=== PATIENT | male | born 1970 | race African-American/Black ===

== ENCOUNTER 2018-05-01 18:22 | Observation (INO) ==
--- NOTE | 2018-05-01 18:47 | Emergency Department Note ---
Disposition Clinical Impression: Atrial fibrillation with RVR Disposition: Admitted As Inpatient Condition: Fair Time of Disposition: 20:28 Arrhythmia/Palpitations HPI - General Chief Complaint: ED Arrhythmia/Palpitations Stated Complaint: A-Fib Time Seen by Provider: 05/01/18 18:29 Source: patient Mode of arrival: ambulatory Limitations: no limitations Nursing Notes Reviewed: Yes Vital Signs Reviewed: Yes - History of Present Illness HPI Narrative: 47-year-old male with a history of hypertension, A. fib presents for evaluation of dyspnea. Patient was sent from the cardiology office regarding his A. fib. Patient states he saw Dr. Galeana for a follow-up. States he has been having worsening dyspnea with exertion. Patient denies any chest pain. No fevers but has had a nonproductive cough. Patient denies any abdominal pain. No nausea or vomiting. Patient states he is on Xarelto and has been taking his heart rate medication per his director of residential services. - Related Data Home Medications Medication Instructions Recorded Confirmed Aspirin [Lo-Dose Aspirin EC] 81 mg PO DAILY 05/01/18 05/01/18 Lisinopril [Zestril] 40 mg PO DAILY 05/01/18 05/01/18 [place]-3/Dha/Epa/Fish Oil [Fish Oil 1 cap PO DAILY 05/01/18 05/01/18 1,000 mg Softgel] Rivaroxaban [Xarelto] 20 mg PO DAILY 05/01/18 05/01/18 Simvastatin [Zocor] 40 mg PO HS 05/01/18 05/01/18 Sotalol [Betapace] 80 mg PO Q12HR 05/01/18 05/01/18 metFORMIN [Glucophage] 500 mg PO BID 05/01/18 05/01/18 Allergies Allergy/AdvReac Type Severity Reaction Status Date / Time No Known Allergies Allergy Verified 05/01/18 18:26 All systems ED: reviewed and negative except as stated. Constitutional: Denies: fever Cardiovascular: Denies: chest pain Respiratory: Reports: cough, dyspnea Gastrointestinal: Denies: abdominal pain, nausea, vomiting Past Medical History - Past Medical History Source: patient Physical Exam - General Limitations: no limitations General appearance: alert, in no apparent distress, obese - Head Head exam: atraumatic, normocephalic, normal inspection - Eye Eye exam: Present: normal appearance, PERRL, EOMI - ENT ENT exam: normal exam, mucous membranes moist - Neck Neck exam: Present: normal inspection - Chest Chest inspection: Present: normal inspection, symmetric chest wall rise - Respiratory Respiratory exam: Present: normal lung sounds bilaterally. Absent: respiratory distress - Cardiovascular Cardiovascular exam: Present: tachycardia, irregular rhythm. Absent: systolic murmur - Abdominal Exam Abdominal exam: Present: soft, Non-Tender - Extremities Exam Extremities exam: Present: normal inspection. Absent: pedal edema - Back Exam Back exam: Present: normal inspection. Absent: CVA tenderness (R), CVA tenderness (L) - Neurological Exam Neurological exam: Present: alert, oriented X3, CN II-XII intact - Skin Skin exam: Present: warm, dry, intact, normal color Course Vital Signs Temperature 97.5 F L 05/01/18 18:25 Pulse Rate 132 05/01/18 18:25 Respiratory Rate 20 05/01/18 18:25 Blood Pressure 153/104 05/01/18 18:25 O2 Sat by Pulse Oximetry 96 05/01/18 18:25 Temperature 97.5 F L 05/01/18 19:04 Pulse Rate 107 05/01/18 20:05 Respiratory Rate 27 05/01/18 20:05 Blood Pressure 142/88 05/01/18 20:05 O2 Sat by Pulse Oximetry 99 05/01/18 20:05 Oxygen Delivery Oxygen Delivery Room Air Arrhythmia/Palpitations - [facility] Narrative Medical decision making narrative: Patient presented for concerns of dyspnea. Likely secondary the patient's A. fib RVR. Patient is on sotalol at baseline. Sent by cardiology for rate control with anticipated admission for cardioversion. Patient is also on Xarelto. Patient's labs clinically unremarkable. Chest x-ray also unremarkable. Patient was given pushed dose of labetalol to help control his rate. Patient's responded to that therapy. Patient will be admitted to the hospital service for rate control and cardioversion. - Lab Data Lab results reviewed: Yes I reviewed the patient's lab results. Result diagrams: 05/01/18 18:40 05/01/18 18:40 Lab Results 05/01/18 05/01/18 05/01/18 Range/Units 18:40 18:40 18:40 WBC 10.7 (4.3-11.1) K/mcL RBC 5.50 (4.19-5.50) M/mcL Hgb 14.9 (12.9-16.9) g/dL Hct 46.2 (37.5-50.1) % MCV 84.0 (83.0-100.0) fL MCH 27.1 L (28.0-33.3) pg MCHC 32.3 (31.6-35.5) g/dL RDW 14.5 (11.5-14.5) % Plt Count 281 (140-400) K/mcL MPV 9.6 (9.4-12.4) fL Immature Gran % 0.3 (0-4) % Seg Neutrophils % 66.6 % Lymphocytes % 21.8 % Monocytes % 7.9 % Eosinophils % 2.6 % Basophils % 0.8 % Neutrophils # 7.1 (1.6-8.9) K/mcL Lymphocytes # 2.3 (0.6-4.6) K/mcL Monocytes # 0.9 (0.0-1.3) K/mcL Eosinophils # 0.3 (0.0-0.6) K/mcL Basophils # 0.1 (0.0-0.2) K/mcL PT 22.0 H (9.4-12.1) Seconds INR 2.0 APTT 41.2 H (26.0-36.0) Seconds Sodium 135 L (136-145) mEq/L Potassium 4.1 (3.5-5.1) mEq/L Chloride 101 (98-107) mEq/L Carbon Dioxide 25 (23-29) mEq/L BUN 12 (6-20) mg/dL Creatinine 1.02 (0.70-1.30) mg/dL Est GFR ( Amer) > 60 (> 60) Est GFR (Non-Af Amer) > 60 (> 60) BUN/Creatinine Ratio 12 (6-26) Glucose 157 H (70-105) mg/dL Calculated Osmolality 283 (280-300) Calcium 9.8 (8.6-10.3) mg/dL Magnesium 2.0 (1.6-2.6) mg/dL Troponin I < 0.03 (< 0.04) ng/mL - Radiology Data Radiology results reviewed: Yes I reviewed the patient's radiology results. Chest X-Ray 05/01/18 18:32 IMPRESSION: No acute abnormality D/ / Jhony Herrera / Jhony Herrera Interpreting Provider: Jhony Herrera - EKG Data EKG attestation: Yes I reviewed and interpreted this EKG. Rate: tachycardia Rhythm: A.Fib [place]/QRS: normal Q waves: v1 QTc: other (499) Interpretation: no acute changes, nonspecific ST-T wave changes Yobany - Yobany Situation: Demographics Background: Presenting Complaint Assessment: Vital Signs, Course and respsone to treatment, Patient/Family Expectation Recommendation: Barrier(s) to disposition, Recommendation based on pending studies, treatments, or consults Yobany Report Given to: Dr. Julio César Haywood Repor Time: 20:09
[2018-05-01 19:02] LABS: Basophils # 0.1 K/mcL (0.0-0.2); Basophils % 0.8 %; Eosinophils # 0.3 K/mcL (0.0-0.6); Eosinophils % 2.6 %; Hematocrit 46.2 % (37.5-50.1); Hemoglobin 14.9 g/dL (12.9-16.9); Immature Granulocytes % 0.3 % (0-4); Lymphocytes # 2.3 K/mcL (0.6-4.6); Lymphocytes % 21.8 %; Mean Corpuscular HGB Conc 32.3 g/dL (31.6-35.5); Mean Corpuscular Hemoglobin 27.1 pg (28.0-33.3); Mean Platelet Volume 9.6 fL (9.4-12.4); Monocytes # 0.9 K/mcL (0.0-1.3); Monocytes % 7.9 %; Neutrophils # 7.1 K/mcL (1.6-8.9); Platelet Count 281 K/mcL (140-400); Red Cell Distribution Width 14.5 % (11.5-14.5); Segmented Neutrophils % 66.6 %
[2018-05-01] MEDS ORDERED: *HR* Metoprolol 5 MG/5 ML VIAL IVP ONE (19:12)
[2018-05-01] MEDS: *HR* Metoprolol 5 MG/5 ML VIAL IVP PRN ×3 (19:18→19:48)
[2018-05-01 19:22] LABS: BUN/Creatinine Ratio 12 (6-26); Blood Urea Nitrogen 12 mg/dL (6-20); Calcium 9.8 mg/dL (8.6-10.3); Carbon Dioxide 25 mEq/L (23-29); Chloride 101 mEq/L (98-107); Glucose 157 mg/dL (70-105); Osmolality,Calculated 283 (280-300); Potassium 4.1 mEq/L (3.5-5.1); Sodium 135 mEq/L (136-145); eGFR For Non-African Americans > 60 (> 60)
[2018-05-01 19:26] LABS: Activated Partial Thrombo Time 41.2 Seconds (26.0-36.0)
[2018-05-01 19:29] LABS: Troponin I < 0.03 ng/mL (< 0.04)
[2018-05-01] MEDS ORDERED: 0.9 % Sodium Chloride 500 ML IVC ONE (19:47)
--- NOTE | 2018-05-01 20:17 | Emergency Department Note ---
Disposition Clinical Impression: Atrial fibrillation with RVR Disposition: Admitted As Inpatient Referrals: Tracey Marx MD [Primary Care Provider] - Forms: ED Satisfaction Letter General Adult HPI - General Chief complaint: ED Chest Pain Stated complaint: A-Fib Time Seen by Provider: 05/01/18 18:29 Source: patient Mode of arrival: ambulatory Limitations: no limitations - History of Present Illness Pain Scale: 0 - Related Data Home Medications Medication Instructions Recorded Confirmed Aspirin [Lo-Dose Aspirin EC] 81 mg PO DAILY 05/01/18 05/01/18 Lisinopril [Zestril] 40 mg PO DAILY 05/01/18 05/01/18 [place]-3/Dha/Epa/Fish Oil [Fish Oil 1 cap PO DAILY 05/01/18 05/01/18 1,000 mg Softgel] Rivaroxaban [Xarelto] 20 mg PO DAILY 05/01/18 05/01/18 Simvastatin [Zocor] 40 mg PO HS 05/01/18 05/01/18 Sotalol [Betapace] 80 mg PO Q12HR 05/01/18 05/01/18 metFORMIN [Glucophage] 500 mg PO BID 05/01/18 05/01/18 Allergies Allergy/AdvReac Type Severity Reaction Status Date / Time No Known Allergies Allergy Verified 05/01/18 18:26 Constitutional: Denies: fever Cardiovascular: Denies: chest pain Respiratory: Reports: cough, dyspnea Gastrointestinal: Denies: abdominal pain, nausea, vomiting Past Medical History - Past Medical History Medical history: Reports: atrial fibrillation, diabetes, hyperlipidemia, hypertension Psychiatric history: Reports: no psych history - Social History Smoking Status: Current every day smoker Smokeless Tobacco Status: No Alcohol use: Reports: rarely Drug use: Reports: none Physical Exam - General Limitations: no limitations General appearance: alert, in no apparent distress, obese Course Vital Signs Temperature 97.5 F L 05/01/18 18:25 Pulse Rate 132 05/01/18 18:25 Respiratory Rate 20 05/01/18 18:25 Blood Pressure 153/104 05/01/18 18:25 O2 Sat by Pulse Oximetry 96 05/01/18 18:25 Temperature 97.5 F L 05/01/18 19:04 Pulse Rate 107 05/01/18 20:05 Respiratory Rate 27 05/01/18 20:05 Blood Pressure 142/88 05/01/18 20:05 O2 Sat by Pulse Oximetry 99 05/01/18 20:05 Oxygen Delivery Oxygen Delivery Room Air Medical Decision Making - Lab Data Result diagrams: 05/01/18 18:40 05/01/18 18:40 Lab Results 05/01/18 05/01/18 05/01/18 Range/Units 18:40 18:40 18:40 WBC 10.7 (4.3-11.1) K/mcL RBC 5.50 (4.19-5.50) M/mcL Hgb 14.9 (12.9-16.9) g/dL Hct 46.2 (37.5-50.1) % MCV 84.0 (83.0-100.0) fL MCH 27.1 L (28.0-33.3) pg MCHC 32.3 (31.6-35.5) g/dL RDW 14.5 (11.5-14.5) % Plt Count 281 (140-400) K/mcL MPV 9.6 (9.4-12.4) fL Immature Gran % 0.3 (0-4) % Seg Neutrophils % 66.6 % Lymphocytes % 21.8 % Monocytes % 7.9 % Eosinophils % 2.6 % Basophils % 0.8 % Neutrophils # 7.1 (1.6-8.9) K/mcL Lymphocytes # 2.3 (0.6-4.6) K/mcL Monocytes # 0.9 (0.0-1.3) K/mcL Eosinophils # 0.3 (0.0-0.6) K/mcL Basophils # 0.1 (0.0-0.2) K/mcL PT 22.0 H (9.4-12.1) Seconds INR 2.0 APTT 41.2 H (26.0-36.0) Seconds Sodium 135 L (136-145) mEq/L Potassium 4.1 (3.5-5.1) mEq/L Chloride 101 (98-107) mEq/L Carbon Dioxide 25 (23-29) mEq/L BUN 12 (6-20) mg/dL Creatinine 1.02 (0.70-1.30) mg/dL Est GFR ( Amer) > 60 (> 60) Est GFR (Non-Af Amer) > 60 (> 60) BUN/Creatinine Ratio 12 (6-26) Glucose 157 H (70-105) mg/dL Calculated Osmolality 283 (280-300) Calcium 9.8 (8.6-10.3) mg/dL Magnesium 2.0 (1.6-2.6) mg/dL Troponin I < 0.03 (< 0.04) ng/mL Attestation Statement - Attestation Attestation: I examined this patient and my medical decision-making was reviewed with the Resident Physician. I agree with the documented findings, disposition and treatment plan as described except to the extent set forth below. 47 year old male presents to the eD with complaints of chest pain and dyspnea nd wa sent to the ED from Dr Ferguson office (Cardiology) for admission for afib RVR symptomatic. He is at 130s and we will treat with lopressor and admit ot medicne after caridopulmoary workup to rule out infectious source
[2018-05-01] MEDS ORDERED: Dextrose Gel 15 GM/37.5 ML TUBE PO PRN ×2 (21:14)
--- NOTE | 2018-05-01 21:56 | Internal Med History&Physical ---
Date of Encounter: 05/01/18 Time of Encounter: 21:51 Internal Medicine - H&P: HPI Chief complaint: palpitations Admitted From: Home Plans for Post Hospital Care: Home History of present illness: Mr. Echevarria is a 47 year old morbidly obese -English man with hypertension, hyperlipidemia, diabetes and atrial fibrillation on rivaroxaban and sotalol who was sent to the ER after his visit to the cardiology office where he saw Dr Galeana and reported complaints of increasing dyspnea and palpitations. He was seen to have an elevated HR and was referred to the ER with consideration to be given for cardioversion. He has remained clinically well appearing and stable. He denies chest pain and says he no longer feels the palpations but does see his precordial region fluttering. He was given 3 doses of IVP metoprolol without any sustaining effects. He is admitted for ongoing observation and cardiology follow up. He reports adherence to his medications. Information provided by his spouse is that he has not had any complications since he was diagnosed with a.fib in 2009. At this time he has no complaints. Denies dizziness, lightheaded sensation, angina, nausea. Family history of diabetes in mother. Past Med Surg Social Fam HX - Past Medical History Medical history: atrial fibrillation, diabetes, hyperlipidemia, hypertension Additional medical history: sleep apnea Psychiatric history: no psych history - Past Surgical History Additional surgical history: heart cath - Social History Smoking Status: Current every day smoker Smokeless Tobacco Status: No Alcohol use: rarely Drug use: none Internal Medicine - H&P: Meds Aspirin [Lo-Dose Aspirin EC] 81 mg PO DAILY 05/01/18 [History] Lisinopril [Zestril] 40 mg PO DAILY 05/01/18 [History] [place]-3/Dha/Epa/Fish Oil [Fish Oil 1,000 mg Softgel] 1 cap PO DAILY 05/01/18 [History] Rivaroxaban [Xarelto] 20 mg PO DAILY 05/01/18 [History] Simvastatin [Zocor] 40 mg PO HS 05/01/18 [History] Sotalol [Betapace] 80 mg PO Q12HR 05/01/18 [History] metFORMIN [Glucophage] 500 mg PO BID 05/01/18 [History] Allergy/AdvReac Type Severity Reaction Status Date / Time No Known Allergies Allergy Verified 05/01/18 18:26 All Systems PM: A 10-system review of systems was performed and is negative for pertinent findings except as documented above in the HPI. - Constitutional Vitals: Temp Pulse Resp BP Pulse Ox 97.7 F 107 16 137/83 98 05/01/18 21:20 05/01/18 21:20 05/01/18 21:20 05/01/18 21:20 05/01/18 21:20 Exam: Vitals: Reviewed General: Obese AA M lying cmofortably in bed in NAD Skin: Warm and supple. HEENT: Moist mucous membranes. No conjunctivae pallor. Neck: No lymphadenopathy. No JVD. No carotid bruits. No palpable thyroid. Chest: Normal thoracic expansion. diminished breath sounds bilaterally due to adiposity. Heart: Tacycardic, irregularly irregular, pulse deficit present. Abdomen: Non-distended, soft and non-tender to palpation. No peritoneal reaction. Extremities: No clubbing, cyanosis or edema. No calf tenderness. Normal distal pulses. Neurological: Awake, alert and oriented to person, place and time. No focal deficits. Psych: Affect appropriate. Internal Med - H&P Results - Labs CBC & Chem 7: 05/01/18 18:40 05/01/18 18:40 Labs: Short CBC 05/01/18 Range/Units 18:40 WBC 10.7 (4.3-11.1) K/mcL Hgb 14.9 (12.9-16.9) g/dL Hct 46.2 (37.5-50.1) % Plt Count 281 (140-400) K/mcL Neutrophils # 7.1 (1.6-8.9) K/mcL BMP 05/01/18 18:40 Sodium 135 L Potassium 4.1 Chloride 101 Carbon Dioxide 25 BUN 12 Creatinine 1.02 Glucose 157 H Calcium 9.8 Cardiac Enzymes 05/01/18 Range/Units 18:40 Troponin I < 0.03 (< 0.04) ng/mL - Impressions ITS Impressions Chest X-Ray 05/01/18 18:32 IMPRESSION: No acute abnormality D/ / Jhony Herrera / Jhony Herrera Interpreting Provider: Jhony Herrera - Assessment and plan (1) Atrial fibrillation with RVR Current Visit: Yes Status: Acute Assessment and plan: The patient reports adherence to his sotalol regimen and remains on anticoagulants. So far he has received 15mg of IVP metoprolol but still remains on the higher side. Will give a 25mg bolus of diltiazem and continue with a drip to start at 5mg/hr and titrate accordingly. Cardiology consult is requested. He will remain on telemetry monitoring. He already took rivaroxaban today and his coags show increase in levels. For now he appears clinically/hemodynamically stable and not warranting emergent cardioversion. (2) Hypertension Current Visit: Yes Status: Acute Assessment and plan: Adequate values for now. Will resume oral lisinopril. Qualifiers: Hypertension type: essential hypertension Qualified Code(s): I10 - Essential (primary) hypertension (3) Hyperlipidemia Current Visit: Yes Status: Acute Assessment and plan: Will continue statin therapy. Qualifiers: Hyperlipidemia type: unspecified Qualified Code(s): E78.5 - Hyperlipidemia, unspecified (4) Diabetes Current Visit: Yes Status: Acute Assessment and plan: Will hold metformin and place on 'insulin sliding scale for now. Last A1C showed adequate control Qualifiers: Diabetes mellitus type: type 2 Diabetes mellitus usp insulin use: without long term care phlebotomist use Diabetes mellitus complication status: with unspecified complications Qualified Code(s): E11.8 - Type 2 diabetes mellitus with unspecified complications (5) Obesity Current Visit: Yes Status: Acute Assessment and plan: Will benefit from animal skinner and bariatric consultations. Counseled on therapeutic lifestyle changes. Qualifiers: Obesity type: due to excess calories Obesity classification: adult class 3 (BMI >= 40) Serious obesity comorbidity presence: with serious comorbidity Body mass index: BMI 50.0-59.9 Qualified Code(s): E66.01 - Morbid (severe) obesity due to excess calories; Z68.43 - Body mass index (BMI) 50-59.9, adult - Time Spent With Patient Total time spent is greater than 50% in coordination of care (as documented) at patient's floor/unit and/or counseling patient: Greater than 35 minutes
[2018-05-02] MEDS: Insulin LISPRO 300 UNITS/3 ML VIAL SQ SCH ×4 (08:20→20:17)
[2018-05-02] MEDS: Aspirin Enteric Coated 81 MG Tablet PO SCH (09:02)
[2018-05-02] MEDS: Lisinopril 20 MG TABLET PO SCH (09:02)
[2018-05-02] MEDS: *HR* Rivaroxaban 10 MG TABLET PO SCH (09:02)
[2018-05-02] MEDS ORDERED: Perflutren Lipid Microsphere 1.3 ML in 0.9 % Sodium Chloride 8.7 ML IVP ONE (09:25)
--- NOTE | 2018-05-02 11:15 | Cardiology Consult Note ---
<Jose Holcomb - Last Filed: 05/02/18 11:53> Date of Encounter: 05/02/18 Time of Encounter: 11:15 Assessment and Plan (1) Atrial fibrillation with RVR Current Visit: Yes Status: Chronic Per Cardiology: Known history of paroxysmal atrial fibrillation on several 80 mg by mouth twice a day at home. Remains on sotalol currently. Now on Cardizem 30 mg by mouth every 6 hours as well. Magnesium and TSH stable. Troponin negative 1. Echo pending per primary service. Average heart rate in telemetry the past 12 hours 99, currently A. fib in the 110s. Current systolic blood pressure 120s to 130s, will increase Cardizem to 60 mg by mouth every 6 hours for now. Will check ECG now and evaluate current QTc. Will discuss review Dr. Clay, anticipate we will increase sotalol to 120 mg by mouth twice a day if able versus possible washout and evaluation for other antiarrhythmic.. Regarding long-term anticoagulation, anticoagulated with Xarelto 20mg PO daily. H&H stable. Kidney function is stable. Denies any active bleeding or blood loss. Has not missed any doses the past 30 days. (2) MAY (obstructive sleep apnea) Current Visit: Yes Status: Chronic Per Cardiology: Known history with compliance at home. Has home machine with him during hospital stay. Discussion w patient/family: The assessment and plan as outlined above was discussed with the patient and/or family members who expressed understanding and agreement. All questions were answered. Thank you for involving us in the care of your patient. Please call with any questions. History of Present Illness Consult date: 05/02/18 Consult reason: Afib Chief complaint: Palps History of present illness: Mr. Echevarria is a 47 year old male with a relevant past medical history of paroxysmal atrial ablation on antiarrhythmic therapy, long-term anticoagulation, hyperlipidemia, DM 2, MAY, CAD. Seen by Dr. Galeana in cardiology office yesterday for routine sotalol evaluation and patient found to be in A. fib with RVR and dyspnea on exertion over the past few weeks. Cardiology consult today for evaluation of A. fib with RVR. Patient reports has been expressing dyspnea on exertion past few weeks. Currently short of breath slightly improved. He denies any current palpitations. Reports has been expressing him intermittently at home at rest and with exertion. He denies any chest pain. Denies any active bleeding or blood loss. Reports compliance with sotalol and Xarelto, has not missed any doses the past 30 days. He reports compliance with CPAP at home for his MAY. Denies any recent infectious process denies any fever, chills, nausea, vomiting, diarrhea. Reports has been on sotalol now for many years. Past Med Surg Social Fam HX - Past Medical History Attestation: Yes The following information was validated with the patient. Source: patient, old records reviewed Medical history: atrial fibrillation, diabetes, hyperlipidemia, hypertension Additional medical history: sleep apnea Psychiatric history: no psych history - Past Surgical History Additional surgical history: heart cath - Social History Smoking Status: Current every day smoker Smokeless Tobacco Status: No Alcohol use: rarely Drug use: none - Family History Father Living Status: Still Living Hx Family Cardiac Disorders: Yes (CAD, aortic stent) Hx Family Cancer: Yes (pancreatic cancer) Mother Living Status: Still Living Hx Family Cardiac Disorders: Yes (afib) Hx Family Respiratory Disorders: No Hx Family Cancer: No Hx Family GI Disorders: No Hx Family Genitourinary Disorders: No Hx Family Endocrine Disorder: No Hx Family Musculoskeletal Disorders: No Hx Family Neuromuscular Disorders: No Hx Family Neurologic Disorders: No Hx Family HEENT Disorders: No Hx Family Autoimmune Disorders: No Hx Family Reproductive Disorders: No Hx Family Psychosocial Disorders: No Hx Family Medical Disorders: No Medications and Allergies Aspirin [Lo-Dose Aspirin EC] 81 mg PO DAILY 05/01/18 [History] Lisinopril [Zestril] 40 mg PO DAILY 05/01/18 [History] [place]-3/Dha/Epa/Fish Oil [Fish Oil 1,000 mg Softgel] 1 cap PO DAILY 05/01/18 [History] Rivaroxaban [Xarelto] 20 mg PO DAILY 05/01/18 [History] Simvastatin [Zocor] 40 mg PO HS 05/01/18 [History] Sotalol [Betapace] 80 mg PO Q12HR 05/01/18 [History] metFORMIN [Glucophage] 500 mg PO BID 05/01/18 [History] Allergy/AdvReac Type Severity Reaction Status Date / Time No Known Allergies Allergy Verified 05/01/18 18:26 All Systems Review: The remainder of the systems were reviewed and are negative - Cardiovascular Cardiovascular: as per HPI, dyspnea on exertion, palpitations Physical Examination Vital Signs, Last 4 Hours Temp Pulse Resp BP Pulse Ox 05/02/18 07:41 97.5 F L 86 18 131/91 99 General: Conversant, No Apparent Distress HEENT: Atraumatic, Normocephaly, Mucus Membranes Moist Neck: No JVD, Normal carotid pulses Cardiac: Normal S1 and S2, No Murmur, Other (Irregularly irregular) Lungs: Normal Breath Sounds, No Wheeze, Rales, Rhonchi Neuro: Alert and responsive, No focal deficits noted Abdomen: Soft, Non-Tender, Other (Obese) Skin: No rashes noted on visualized skin Musculoskeletal: No Chest Wall Tenderness Extremities: No Clubbing, No Cyanosis, No Edema, Normal Pulses Results 05/01/18 18:40 05/01/18 18:40 Lab Results Laboratory Tests 05/01/18 05/01/18 05/01/18 18:40 18:40 18:40 Hgb 14.9 Hct 46.2 INR 2.0 Creatinine 1.02 Est GFR (Non-Af Amer) > 60 Magnesium 2.0 Troponin I < 0.03 B-Natriuretic Peptide 05/01/18 21:50 Hgb Hct INR Creatinine Est GFR (Non-Af Amer) Magnesium Troponin I B-Natriuretic Peptide 252 H ITS Impressions Chest X-Ray 05/01/18 18:32 IMPRESSION: No acute abnormality D/ / Jhony Herrera / Jhony Herrera Interpreting Provider: Jhony Herrera Active Medications Aspirin (Aspirin Ec) 81 mg PO DAILY [facility] Stop: 11/01/18 09:01 Last Admin: 05/02/18 09:02 Dose: 81 mg Diltiazem HCl (Cardizem) 30 mg PO Q6HR [facility]AMMY Stop: 11/01/18 00:37 Last Admin: 05/02/18 05:33 Dose: 30 mg Glucose (Gluctose) 15 gm PO ONCE PRN PRN Reason: Hypoglycemia Stop: 10/31/18 21:15 Glucose (Gluctose) 30 gm PO ONCE PRN PRN Reason: Hypoglycemia Stop: 10/31/18 21:15 Insulin Human Lispro (Humalog) 0 units SQ HS TAMMY; Protocol Stop: 11/01/18 21:01 Insulin Human Lispro (Humalog) 0 units SQ TIDAC [facility]; Protocol Stop: 11/01/18 07:31 Last Admin: 05/02/18 08:20 Dose: Not Given Lisinopril (Zestril) 40 mg PO DAILY [facility] Stop: 11/01/18 09:01 Last Admin: 05/02/18 09:02 Dose: 40 mg Rivaroxaban (Xarelto) 20 mg PO DAILY [facility] Stop: 11/01/18 09:01 Last Admin: 05/02/18 09:02 Dose: 20 mg Simvastatin (Zocor) 10 mg PO HS [facility]; Protocol Stop: 11/01/18 21:01 Sotalol HCl (Betapace) 80 mg PO Q12HR [facility] Stop: 11/01/18 06:01 Last Admin: 05/02/18 05:33 Dose: 80 mg - Imaging and Cardiology Echo: pending - EKG Interpretation EKG results cardiology: personally reviewed (A. fib with RVR in the 130s with QTc 499 ms) Consult Discharge Plan - Plan Referrals: Tracey Marx MD [Primary Care Provider] - (Your appointment has been requested. Our offices will call you with an appointment time and date.) <Amanda Clay - Last Filed: 05/02/18 12:23> - Attending Attestation I have personally performed a face to face evaluation on this patient. I have reviewed and agree with the care plan. History and Exam by me shows: PAF on sotalol and CCB, will proceed to increase dose of sotalol and monitor EKG . Will likely need an ECHO to evaluate for SHD Assessment and Plan Discussion w patient/family: The assessment and plan as outlined above was discussed with the patient and/or family members who expressed understanding and agreement. All questions were answered. Thank you for involving us in the care of your patient. Please call with any questions. History of Present Illness History of present illness: Mr. Echevarria is a 47 year old male All Systems Review: The remainder of the systems were reviewed and are negative Physical Examination Vital Signs, Last 4 Hours Temp Pulse Resp BP Pulse Ox 05/02/18 11:56 98.2 F 110 19 142/96 97 Results 05/01/18 18:40 05/01/18 18:40 Lab Results 05/01/18 05/01/18 05/01/18 18:40 18:40 18:40 WBC 10.7 Hgb 14.9 Hct 46.2 Plt Count 281 INR 2.0 APTT 41.2 H Sodium 135 L Potassium 4.1 Chloride 101 Carbon Dioxide 25 BUN 12 Creatinine 1.02 Glucose 157 H Calcium 9.8 Magnesium 2.0 Troponin I < 0.03 B-Natriuretic Peptide 05/01/18 21:50 WBC Hgb Hct Plt Count INR APTT Sodium Potassium Chloride Carbon Dioxide BUN Creatinine Glucose Calcium Magnesium Troponin I B-Natriuretic Peptide 252 H
--- NOTE | 2018-05-02 14:23 | Event Note ---
Date of Encounter: 05/02/18 Time of Encounter: 14:20 - Cardiology Event Note Current ECG shows A. fib 110 with QTC 387 ms, per discussion with Dr. Clay plan to increase sotalol up to 120 mg by mouth twice a day. Will make nothing by mouth after midnight for possible DC cardio eversion tomorrow.
--- NOTE | 2018-05-02 14:35 | Electrocardiograph Report ---
[place] [id number] Test Date: 2018-05-02 Pat Name: Raul Echevarria Department: 113 Room: 3B49 Gender: M Apartment Community Assistant Manager: CORNELIO : 1970 Requested By: Jose Holcomb Order Number: [id number] Reading MD: Herbert Galeana Measurements Intervals [place] Rate: 114 P: OR: 0 QRS: 32 QRSD: 87 T: -29 QT: 320 QTc: 388 Interpretive Statements ATRIAL FIBRILLATION WITH RAPID VENTRICULAR RESPONSE WITH ABERRANT CONDUCTION OR VENTRICULAR PREMATURE COMPLEXES Electronically Signed On 05-02-2018 14:33:06 EDT by Herbert Galeana
--- NOTE | 2018-05-02 18:46 | Internal Med Progress Note ---
Hospitalist Progress Note - Encounter Date of Encounter: 05/02/18 Time of Encounter: 18:42 - Subjective Interval History: Mr. Echevarria is a 47-year-old morbidly obese male who was admitted from his doctor's office for A. fib with RVR. He states that, he was unaware that he was even having any palpitations or atrial fib reports that mo st times he can feel the palpitations. He was noted to have increasing shortness of breath and dyspnea with exertion which was most likely related to his A. fib with RVR. He was on beta blockers, xarelto, and sotalol.. Labs and chest x-ray at the time of admission were unremarkable. He was admitted per Dr. Galeana for further evaluation and cardioversion . Today he denies any chest pain shortness of breath dizziness blurred vision. He is examined bedside deadness in no acute distress, resting comfortably. - Exam Vitals: Temp Pulse Resp BP Pulse Ox 98.0 F 124 19 135/92 96 05/02/18 16:53 05/02/18 16:53 05/02/18 16:53 05/02/18 16:53 05/02/18 16:53 Exam: He does have a irregular heart rate, and rhythm, with mild tachycardia of pulse of 106, her pressure is stable at 144/90. Then SPO2 on RA is 95% - Assessment and Plan (1) Atrial fibrillation with RVR Current Visit: Yes Status: Chronic Assessment and Plan: Patient continues to have some mild tachycardia with A. fib and RVR. Today he was evaluated per cardiology and his cardiac exam was increased to 60 mg every 6 hours as well as his sotalol was increased to 120 mg twice a day he was placed on Xarelto 20 mg daily He is pending cardioversion in the morning. This evening he will be made nothing by mouth after midnight. We will continue to monitor him on telemetry (2) Hypertension Current Visit: Yes Status: Acute Assessment and Plan: We will continue with beta blockers, his cardiac exam was increased per breaker tender to 60 mg every 6 hour and his sotalol was increased to 120 mg twice a day. Noted trace pitting pre-tibeal edema, secondary to AFIB (3) Hyperlipidemia Current Visit: Yes Status: Chronic Assessment and Plan: We will continue with his Zocor (4) Diabetes Current Visit: Yes Status: Chronic Assessment and Plan: Currently is on on basal bolus insulin, glucose is reviewed and is at 109 (5) Obesity Current Visit: Yes Status: Chronic Assessment and Plan: Will benefit from personal injury paralegal and bariatric consultations. Counseled on therapeutic lifestyle changes. DVT Prophylaxis: Currently taking Xarelto - Summary of Assessment and Plan Summary of Assessment and Plan: Mr. Echevarria is 47-year-old very pleasant morbidly obese -[place] male who is interviewed at the bedside. This evening he has no chief complaints denies any chest pain shortness of breath dizziness. He is resting comfortably. He continues with A. fib with RVR and mild tachycardia with a pulse of 109. He was evaluated per cardiology today and his Cardizam was increased to 60 mg q6hr, and increase o Sotalol to 120 mg bid. He was placed on Xeralto 20 mg daily. If he continues with Afib- with RVR with medicinal failure, is planed for cardioversion in the morning. He will be NPO at midnight pending cardioversion . - Time Spent with Patient Total time spent is greater than 50% in coordination of care (as documented) at patient's floor/unit and/or counseling patient: less than 15 minutes Plan of Care Discussed with: patient Internal Medicine: Result - Labs CBC & Chem 7: 05/01/18 18:40 05/01/18 18:40 Labs: Short CBC 05/01/18 Range/Units 18:40 WBC 10.7 (4.3-11.1) K/mcL Hgb 14.9 (12.9-16.9) g/dL Hct 46.2 (37.5-50.1) % Plt Count 281 (140-400) K/mcL Neutrophils # 7.1 (1.6-8.9) K/mcL BMP 05/01/18 18:40 Sodium 135 L Potassium 4.1 Chloride 101 Carbon Dioxide 25 BUN 12 Creatinine 1.02 Glucose 157 H Calcium 9.8 Cardiac Enzymes 05/01/18 Range/Units 18:40 Troponin I < 0.03 (< 0.04) ng/mL - ABG Interpretation ABG results: PT/INR, D-dimer PT 22.0 Seconds (9.4-12.1) H 05/01/18 18:40 - Impressions Impressions Chest X-Ray 05/01/18 18:32 IMPRESSION: No acute abnormality D/ / Jhony Herrera / Jhony Herrera Interpreting Provider: Jhony Herrera Echocardiogram 05/02/18 07:00 Impressions: Technically sub-optimal due to poor echocardiographic windows. LVEF 55-60%. Indeterminate diastolic function. Normal right ventricular structure and function. Trace tricuspid regurgitation. - Diagnostic Studies Other Images Additional comments: Echo: Findings: Study Quality * Technically sub-optimal due to poor echocardiographic windows. ECG Findings * Atrial fibrillation. Left Ventricle * LVEF 55-60%. * Indeterminate diastolic function. Right Ventricle * Normal right ventricular structure and function. Left Atrium * Normal left atrial size. Right Atrium * Normal right atrial size. Interatrial Septum * No evidence of PFO by color Doppler. Aortic Valve * Trileaflet aortic valve. * Normal aortic valve structure. * No aortic regurgitation. * No aortic stenosis. Mitral Valve * Normal mitral valve structure. * No mitral regurgitation. * No mitral stenosis. Tricuspid Valve * Normal tricuspid valve structure. * Trace tricuspid regurgitation. * No tricuspid stenosis. * Unable to estimate RVSP due to lack of TR jet. Pulmonic Valve * Pulmonic valve is not well visualized. Aorta * Normally sized aortic root. Pericardium * The pericardium appears normal. IVC * Normal IVC dimensions and inspiratory collapse. Pulmonary Artery * Normal visualized portions of the main pulmonary artery. Consult Discharge Plan - Plan Referrals: Tracey Marx MD [Primary Care Provider] - 05/10/18 10:00 am () (2) Hypertension Qualifiers: Hypertension type: essential hypertension Qualified Code(s): I10 - Essential (primary) hypertension (3) Hyperlipidemia Qualifiers: Hyperlipidemia type: unspecified Qualified Code(s): E78.5 - Hyperlipidemia, unspecified (4) Diabetes Qualifiers: Diabetes mellitus type: type 2 Diabetes mellitus assisted insulin use: without assisted use Diabetes mellitus complication status: with unspecified complications Qualified Code(s): E11.8 - Type 2 diabetes mellitus with unspecified complications (5) Obesity Qualifiers: Obesity type: due to excess calories Obesity classification: adult class 3 (BMI >= 40) Serious obesity comorbidity presence: with serious comorbidity Body mass index: BMI 50.0-59.9 Qualified Code(s): E66.01 - Morbid (severe) obesity due to excess calories; Z68.43 - Body mass index (BMI) 50-59.9, adult
--- NOTE | 2018-05-03 08:37 | Event Note ---
Date of Encounter: 05/03/18 Time of Encounter: 08:40 - Cardiology Event Note Telemetry reviewed and patient remains A. fib in the 70s to 80s. Will convert Cardizem to CD 180mg PO daily, now on sotalol 120 mg by mouth twice a day. Current ECG shows: Atrial fibrillation with QTC 474ms. Plan for DC cardioversi on today. He remains anticoagulated with Xarelto, has not missed any doses the past 30 days. Further recommendations after cardioversion. Patient agreeable to plan. All questions answered.
[2018-05-03] MEDS: Insulin LISPRO 300 UNITS/3 ML VIAL SQ SCH ×4 (08:51→21:54)
[2018-05-03] MEDS: Lisinopril 20 MG TABLET PO SCH (09:10)
[2018-05-03] MEDS: *HR* Rivaroxaban 10 MG TABLET PO SCH (09:10)
[2018-05-03] MEDS: Diltiazem CD (24hr) 180 MG CAPSULE PO SCH (09:10)
[2018-05-03] MEDS: Aspirin Enteric Coated 81 MG Tablet PO SCH (09:10)
[2018-05-03 09:26] LABS: BUN/Creatinine Ratio 12 (6-26); Blood Urea Nitrogen 12 mg/dL (6-20); Calcium 9.2 mg/dL (8.6-10.3); Carbon Dioxide 27 mEq/L (23-29); Chloride 103 mEq/L (98-107); Glucose 131 mg/dL (70-105); Magnesium 2.2 mg/dL (1.6-2.6); Osmolality,Calculated 284 (280-300); Phosphorous 3.5 mg/dL (2.7-4.5); Potassium 4.2 mEq/L (3.5-5.1); Sodium 136 mEq/L (136-145); eGFR For Non-African Americans > 60 (> 60)
--- NOTE | 2018-05-03 10:18 | Internal Med Progress Note ---
Hospitalist Progress Note - Encounter Date of Encounter: 05/03/18 Time of Encounter: 10:15 - Subjective Interval History: Patient admitted to the hospital due to shortness of breath with minimal exertion. Patient found to be on a.fib an rVr. Evaluated at bedside, reports no shortness of breath or chest pain. denies palpitation or dizziness. denies nausea or vomiting. - Exam Vitals: Temp Pulse Resp BP Pulse Ox 97.3 F L 83 20 132/87 97 05/03/18 07:38 05/03/18 07:38 05/03/18 07:38 05/03/18 07:38 05/03/18 07:38 Exam: General: Alert and oriented x4. In no acute distress. Morbidly obese. Skin: Normal color, no rash, no lesions. HEENT: EOM, pupils equal, round and reactive. Cardiovascular: Irregularly, irregular, Normal S1 & S2, no rubs, murmurs or gallops. Lungs: Clear to auscultation bilaterally, no wheezes or crackles. Abdomen: Obese Soft, non-tender, no rigidity. NABS in all 4 quadrants Extremities: No deformity, no edema or tenderness. Neurological: Normal cognition and motor skills. CN II-XII intact. Rest of the physical exam is non contributory - Assessment and Plan (1) Atrial fibrillation Current Visit: Yes Status: Acute Assessment and Plan: Patient presented with A. fib and RVR, associated with shortness of breath. Rate has been controlled. Plan Cardizem increased to 180 mg by mouth daily. Sotalol increased to 120 mg by mouth every 12 hours. On an oral anticoagulant due to High CHADSVASC score Patient is scheduled for cardioversion today will continue to follow cardiology recommendations. (2) Hypertension Current Visit: Yes Status: Chronic Assessment and Plan: Blood pressures well controlled on Cardizem, sotalol and lisinopril. (3) Hyperlipidemia Current Visit: Yes Status: Chronic Assessment and Plan: Continue statin. (4) Diabetes Current Visit: Yes Status: Chronic Assessment and Plan: Carb controlled diet. Lispro high dose sliding scale before meals. We will start low-dose Levemir 5 units at bedtime. (5) Obesity Current Visit: Yes Status: Chronic (6) MAY (obstructive sleep apnea) Current Visit: Yes Status: Chronic Assessment and Plan: Continue nocturnal CPAP DVT Prophylaxis: Patient anticoagulated with ribaroxaban due to A.fib - Summary of Assessment and Plan Summary of Assessment and Plan: Patient is scheduled for cardioversion today. - Time Spent with Patient Total time spent is greater than 50% in coordination of care (as documented) at patient's floor/unit and/or counseling patient: 25 - 35 minutes Plan of Care Discussed with: patient (the nurse.) Internal Medicine: Result - Labs CBC & Chem 7: 05/01/18 18:40 05/03/18 08:52 Labs: BMP 05/03/18 08:52 Sodium 136 Potassium 4.2 Chloride 103 Carbon Dioxide 27 BUN 12 Creatinine 0.98 Glucose 131 H Calcium 9.2 - ABG Interpretation ABG results: PT/INR, D-dimer PT 22.0 Seconds (9.4-12.1) H 05/01/18 18:40 - Impressions Impressions Echocardiogram 05/02/18 07:00 Impressions: Technically sub-optimal due to poor echocardiographic windows. LVEF 55-60%. Indeterminate diastolic function. Normal right ventricular structure and function. Trace tricuspid regurgitation. Consult Discharge Plan - Plan Referrals: Tracey Marx MD [Primary Care Provider] - 05/10/18 10:00 am () (1) Atrial fibrillation Qualifiers: Atrial fibrillation type: chronic Qualified Code(s): I48.2 - Chronic atrial fibrillation (2) Hypertension Qualifiers: Hypertension type: essential hypertension Qualified Code(s): I10 - Essential (primary) hypertension (3) Hyperlipidemia Qualifiers: Hyperlipidemia type: unspecified Qualified Code(s): E78.5 - Hyperlipidemia, unspecified (4) Diabetes Qualifiers: Diabetes mellitus type: type 2 Diabetes mellitus usp insulin use: without marine oil terminal superintendent use Diabetes mellitus complication status: with unspecified complications Qualified Code(s): E11.8 - Type 2 diabetes mellitus with unspecified complications (5) Obesity Qualifiers: Obesity type: due to excess calories Obesity classification: adult class 3 (BMI >= 40) Serious obesity comorbidity presence: with serious comorbidity Body mass index: BMI 50.0-59.9 Qualified Code(s): E66.01 - Morbid (severe) obesity due to excess calories; Z68.43 - Body mass index (BMI) 50-59.9, adult
[2018-05-03] MEDS ORDERED: 0.9 % Sodium Chloride 500 ML IVC ONE (13:25)
[2018-05-03] MEDS: *HR* FentaNYL (PF) 100 MCG/2 ML VIAL IVP PRN ×4 (14:05→14:27)
[2018-05-03] MEDS: *HR* Midazolam HCl 5 MG/5 ML VIAL IVP PRN ×6 (14:05→14:27)
--- NOTE | 2018-05-03 19:34 | Event Note ---
Date of Encounter: 05/03/18 Time of Encounter: 16:00 - Cardiology Event Note Discussed and reviewed with Dr. Ruff. I had lengthy discussion with patient and family regarding rate control versus rhythm control strategy. Patient currently rate controlled with addition of Cardizem CD 180 mg by mouth daily. Now on higher dose of sotalol 120 mg by mouth twice a day with 2 total doses of higher regimen. Status post unsuccessful attempt at zoroastrianism of sinus rhythm today with 2 cardioversion attempts. Patient and family agreeable to discharge home today on sotalol 120 mg by mouth twice a day, Cardizem CD 180 mg by mouth daily and continued with home dose of Xarelto 20 mg by mouth daily for anticoagulati on. Patient is being coordinated for outpatient nurse visit for ECG Sunday to evaluate for A. fib and monitor QTC. Office staff coordinating outpatient cardioversion attempt next week as well if remains clinically warranted. Patient would not need RAMY prior to cardioversion as has not missed any doses of anticoagulation the past 30 days. Patient aware for no driving for the next 24 hours. Patient to renal for until seen in the office Sunday. Patient's primary field service coordinator notified of plan as well. Cardiology signoff, reconsult as needed, anticipate discharge home today. All questions answered.
[2018-05-03] MEDS ORDERED: Insulin DETEMIR 100 UNIT/ML X5UNITS SQ SCH (21:00)
[2018-05-04 07:00] VITALS: BP 114/79
--- NOTE | 2018-05-04 08:05 | Discharge Summary ---
- NOTES TO OUTPATIENT PROVIDER Notes to Outpatient Provider: Pt admitted with atrial fibrillation. Cardizem added and Sotalol increased. Cardioversion attempted x 2 and was unsuccessful. Orders not resulted at time of discharge: Pending orders 05/04/18 06:00 ECG 12 lead ECG [ECG] AM 0600 05/05/18 06:00 ECG 12 lead ECG [ECG] AM 0600 Date of Encounter: 05/04/18 Time of Encounter: 08:30 - Discharge Diagnosis (1) Atrial fibrillation Priority: Primary Status: Chronic Qualifiers: Atrial fibrillation type: chronic Qualified Code(s): I48.2 - Chronic atrial fibrillation (2) Hypertension Priority: Secondary Status: Chronic Qualifiers: Hypertension type: essential hypertension Qualified Code(s): I10 - Essential (primary) hypertension (3) Hyperlipidemia Priority: Secondary Status: Chronic Qualifiers: Hyperlipidemia type: mixed hyperlipidemia Qualified Code(s): E78.2 - Mixed hyperlipidemia (4) Diabetes Priority: Secondary Status: Chronic Qualifiers: Diabetes mellitus type: type 2 Diabetes mellitus detention insulin use: without long term care pharmacist use Diabetes mellitus complication status: without compli cation Qualified Code(s): E11.9 - Type 2 diabetes mellitus without complications (5) Obesity Priority: Secondary Status: Chronic Qualifiers: Obesity type: due to excess calories Obesity classification: adult class 3 (BMI >= 40) Serious obesity comorbidity presence: with serious comorbidity Body mass index: BMI 50.0-59.9 Qualified Code(s): E66.01 - Morbid (severe) obesity due to excess calories; Z68.43 - Body mass index (BMI) 50-59.9, adult (6) MAY (obstructive sleep apnea) Priority: Secondary Status: Chronic Hospital course: Mr. Echevarria is a 47 year old male with hx of HTN, DM and a fib presented to ED from Dr. Galeana's office due to increased dyspnea and palpitations. He was found to be in a fib with RVR and placed in observation. Mr Echevarria was placed in observation. He was started on rate control meds and Sotalol was increased. Cardioversion attempted x 2 without success. Today he is afebrile and rate controlled. He is ready for discharge home. Discharge discussed with: patient, family - Time Spent with Patient Total time spent providing and/or coordinating discharge services: 37min - Discharge Medications Prescriptions: Sotalol [Betapace] 120 mg PO Q12HR #45 tablet Diltiazem CD (24hr) [Cardizem CD] 180 mg PO DAILY #30 cap.er.24h Home Medications: Aspirin [Lo-Dose Aspirin EC] 81 mg PO DAILY 05/01/18 [History] Lisinopril [Zestril] 40 mg PO DAILY 05/01/18 [History] [place]-3/Dha/Epa/Fish Oil [Fish Oil 1,000 mg Softgel] 1 cap PO DAILY 05/01/18 [History] Rivaroxaban [Xarelto] 20 mg PO DAILY 05/01/18 [History] Simvastatin [Zocor] 40 mg PO HS 05/01/18 [History] metFORMIN [Glucophage] 500 mg PO BID 05/01/18 [History] Diltiazem CD (24hr) [Cardizem CD] 180 mg PO DAILY #30 cap.er.24h 05/04/18 [Rx] Sotalol [Betapace] 120 mg PO Q12HR #45 tablet 05/04/18 [Rx] Allergies/Adverse Reactions: Allergy/AdvReac Type Severity Reaction Status Date / Time No Known Allergies Allergy Verified 05/01/18 18:26 Date of admission: 05/01/18 20:21 Primary care physician: Tracey Marx MD Consults: 05/01/18 18:33 Consult to Cardiology [CONS] Stat Comment: Consulting Provider: [facility] Reason for Consult: AFIB SENT by Dr. Galeana Call Completed: No Discharging clinician: Jeremías Barrow Anticipated date of discharge: 05/04/18 - Constitutional Vitals: Temp Pulse Resp BP Pulse Ox 98.1 F 70 16 114/79 96 05/04/18 06:59 05/04/18 06:59 05/04/18 06:59 05/04/18 06:59 05/04/18 06:59 General appearance: Present: A&O X 3 Exam: See below - Head Head exam: Present: normocephalic - Eye Eye exam: Present: EOMI, conjuntiva pink - ENT ENT exam: Present: mucous membranes moist - Respiratory Respiratory exam: Present: decreased breath sounds. Absent: rales, rhonchi, wheezes - Cardiovascular Cardiovascular exam: Present: irregular rhythm. Absent: tachycardia - GI/Abdominal GI/Abdominal exam: Present: soft. Absent: tenderness - Extremities Exam Extremities exam: Present: warm. Absent: tenderness - Neurological Exam Neurological exam: Present: alert, oriented X3 - Skin Skin exam: Present: dry, warm - Patient Status Disposition: Home, Self-Care Condition: Good Functional capacity at discharge: independent ambulation Overall status at discharge: patient is progressing back to baseline - Discharge Instructions Instructions: Sotalol (By mouth), Atrial Fibrillation (DC), Diabetes Mellitus Type 2 in Adults (DC), Chronic Hypertension (DC) Follow Up With: [facility] [Provider Group] - 05/06/18 10:00 am (Appointment with RN for EKG in Cardiology office. ) Tracey Marx MD [Primary Care Provider] - 05/10/18 10:00 am () - Diet and Activity Activity: increase activity as tolerated Diet: advance to your usual diet
[2018-05-04] MEDS: Insulin LISPRO 300 UNITS/3 ML VIAL SQ SCH (08:55)
[2018-05-04] MEDS: Lisinopril 20 MG TABLET PO SCH ×2 (08:56→08:58)
[2018-05-04] MEDS: *HR* Rivaroxaban 10 MG TABLET PO SCH (08:56)
[2018-05-04] MEDS: Diltiazem CD (24hr) 180 MG CAPSULE PO SCH (08:56)
[2018-05-04] MEDS: Aspirin Enteric Coated 81 MG Tablet PO SCH (08:56)
--- NOTE | 2018-05-04 22:35 | Electrocardiograph Report ---
[place] [address] Test Date: 2018-05-01 Pat Name: Raul Echevarria Department: [id number] Room: 3B Gender: M Power System Operator: : 1970 Requested By: Von Oliva Order Number: [id number] Reading MD: Pauly Waterman Measurements Intervals [place] Rate: 137 P: [place]: QRS: 57 QRSD: 86 T: 3 QT: 318 QTc: 499 Interpretive Statements Atrial fibrillation with rapid ventricular response Borderline prolonged QT interval Missing lead(s): V2 Electronically Signed On 05-04-2018 22:34:21 EDT by Pauly Waterman
--- NOTE | 2018-05-07 12:38 | Electrocardiograph Report ---
[place] [email or web address] Test Date: 2018-05-03 Pat Name: Raul Echevarria Department: 101 Room: 3B49 Gender: M Data Migration Consultant: : 1970 Requested By: Jeremías Barrow Order Number: [id number] Reading MD: Norm Simpson Measurements Intervals [place] Rate: 102 P: [place]: 0 QRS: 10 QRSD: 97 T: -18 QT: 381 QTc: 440 Interpretive Statements ATRIAL FIBRILLATION WITH RAPID VENTRICULAR RESPONSE POSSIBLE RIGHT VENTRICULAR CONDUCTION DELAY ABNORMAL RHYTHM ECG Electronically Signed On 05-07-2018 12:36:55 EDT by Norm Simpson
--- NOTE | 2018-05-07 13:56 | Electrocardiograph Report ---
[address] [address] Test Date: 2018-05-03 Pat Name: Raul Echevarria Department: 113 Room: 3B Gender: M Health Psychologist: : 1970 Requested By: Jose Holcomb Order Number: [id number] Reading MD: Herbert Galeana Measurements Intervals [place] Rate: 77 P: [place]: 0 QRS: 1 QRSD: 86 T: -10 QT: 443 QTc: 474 Interpretive Statements ATRIAL FIBRILLATION Electronically Signed On 05-07-2018 13:55:08 EDT by Herbert Galeana
--- NOTE | 2018-05-07 14:11 | Electrocardiograph Report ---
[place] [address] Test Date: 2018-05-03 Pat Name: Raul Echevarria Department: 113 Room: 3B Gender: M Tobacco Acreage Measurer: : 1970 Requested By: Pauly Waterman Order Number: [id number] Reading MD: Herbert Galeana Measurements Intervals [place] Rate: 92 P: [place]: 0 QRS: 3 QRSD: 87 T: -16 QT: 360 QTc: 410 Interpretive Statements ATRIAL FIBRILLATION WITH ABERRANT CONDUCTION OR VENTRICULAR PREMATURE COMPLEXES ABNORMAL RHYTHM ECG Electronically Signed On 05-07-2018 14:09:40 EDT by Herbert Galeana
--- NOTE | 2018-05-10 10:10 | Electrocardiograph Report ---
[address] [address] Test Date: 2018-05-04 Pat Name: Raul Echeavrria Department: 113 Room: 3B Gender: M Bill Recapitulation Clerk: : 1970 Requested By: Jose Holcomb Order Number: [id number] Reading MD: Herbert Galeana Measurements Intervals [place] Rate: 92 P: [place]: 0 QRS: 9 QRSD: 94 T: -4 QT: 406 QTc: 455 Interpretive Statements ATRIAL FIBRILLATION Electronically Signed On 05-10-2018 10:08:22 EDT by Herbert Galeana
== END 2018-05-04 09:31 | disposition home or self-care (01) ==
LOC: EMEROOARM 18:22 → 3BNU 18:22 → SUATTDRO 20:21 → 3BNU 21:05
PROVIDERS: ADMIT Internal Medicine; ATTEND Internal Medicine

== ENCOUNTER 2018-06-11 10:29 | Inpatient (IN) ==
[2018-06-11] MEDS ORDERED: Naloxone 0.4 MG/ML INJ IVP PRN (10:31)
--- NOTE | 2018-06-11 10:35 | History & Physical Report ---
Date of Encounter: 06/11/18 Time of Encounter: 11:07 24 Hour HP Update - Instructions Instructions: If the History and Physical is less than 30 days old and was completed prior to A.M. admission and or procedure and has NOT been updated on calendar day of procedure please complete this update prior to performing procedure. - Update Patient reports changes in Medical Condition: No Changes in examination, assessment, or condition: No Changes in Medication: No
--- NOTE | 2018-06-11 10:35 | Event Note ---
Date of Encounter: 06/11/18 Time of Encounter: 11:00 - Cardiology Event Note Patient with known history of PAF, on sotalol therapy with recurrence of a.fib who was directly admitted for sotalol increase. Patient is currently on sotalol 120mg BID and plan to increase to 160mg BID. Patient took 120mg this am. Patient is on xarelto for anticoagulation and denies missed doses in the past 30 days. ECG today with viky.fib, HR 106, QT 347/QTc 409ms. Renal function normal. Has known sleep apnea and is compliant with CPAP. ECGs, labs reviewed with Dr.John Betancourt, will start 160mg BID starting this evening. Daily ECGs, continuous site monitor. Will continue to monitor.
[2018-06-11 11:07] LABS: Basophils # 0.1 K/mcL (0.0-0.2); Basophils % 1.1 %; Eosinophils # 0.3 K/mcL (0.0-0.6); Eosinophils % 3.1 %; Hematocrit 49.3 % (37.5-50.1); Hemoglobin 15.7 g/dL (12.9-16.9); Immature Granulocytes % 0.2 % (0-4); Lymphocytes # 2.2 K/mcL (0.6-4.6); Lymphocytes % 24.6 %; Mean Corpuscular HGB Conc 31.8 g/dL (31.6-35.5); Mean Corpuscular Hemoglobin 26.5 pg (28.0-33.3); Mean Corpuscular Volume 83.1 fL (83.0-100.0); Mean Platelet Volume 8.8 fL (9.4-12.4); Monocytes # 0.8 K/mcL (0.0-1.3); Monocytes % 8.5 %; Neutrophils # 5.5 K/mcL (1.6-8.9); Platelet Count 335 K/mcL (140-400); Red Blood Count 5.93 M/mcL (4.19-5.50); Red Cell Distribution Width 14.6 % (11.5-14.5); Segmented Neutrophils % 62.5 %
[2018-06-11] MEDS ORDERED: *HR* Dextrose 50 % in Water (Syg) 50 ML SYRINGE IVP PRN (11:12)
[2018-06-11] MEDS ORDERED: D5% in Water 1,000 ML IVC PRN (11:12)
[2018-06-11] MEDS ORDERED: Dextrose Gel 15 GM/37.5 ML TUBE PO PRN ×2 (11:12)
[2018-06-11 11:34] LABS: BUN/Creatinine Ratio 15 (6-26); Blood Urea Nitrogen 15 mg/dL (6-20); Calcium 9.5 mg/dL (8.6-10.3); Carbon Dioxide 26 mEq/L (23-29); Chloride 103 mEq/L (98-107); Glucose 138 mg/dL (70-105); Osmolality,Calculated 289 (280-300); Potassium 3.8 mEq/L (3.5-5.1); Sodium 138 mEq/L (136-145); eGFR For Non-African Americans > 60 (> 60)
[2018-06-11] MEDS: Insulin LISPRO 300 UNITS/3 ML VIAL SQ SCH ×3 (11:48→20:21)
[2018-06-11] MEDS: *HR* Metformin 500 MG TABLET PO SCH (17:39)
[2018-06-11] MEDS: Aspirin Enteric Coated 81 MG Tablet PO SCH (20:20)
[2018-06-11] MEDS: Lisinopril 20 MG TABLET PO SCH (20:20)
[2018-06-12] MEDS: *HR* Metformin 500 MG TABLET PO SCH ×2 (08:10→17:25)
[2018-06-12] MEDS: Diltiazem CD (24hr) 180 MG CAPSULE PO SCH (08:11)
[2018-06-12] MEDS: Insulin LISPRO 300 UNITS/3 ML VIAL SQ SCH ×4 (08:18→22:39)
--- NOTE | 2018-06-12 09:01 | Electrophysiology ProgressNote ---
Date of Encounter: 06/12/18 Time of Encounter: 08:45 Assessment and Plan (1) Encounter for monitoring anti-arrhythmic therapy Current Visit: Yes Status: Acute Per EP: -Patient was admitted for sotalol increase. -Currently on sotalol 160mg BID, s/p 2 total doses of increase sotalol. -On xarelto for anticoagulation and denies missed xarelto doses in the past 30 days. -ECG baseline 06/11/18 with a.fib, HR 106 QT 347/QTc 409ms. -ECG 06/12/18 with a.fib, HR 89. QT 402/QTc 448ms. -Remains a.fib on tele with average HR 86. -Denies complaints. -Continuous telemetry monitoring. -ECGs daily. ECGs reviewed with Dr.John Betancourt. -Will continue to monitor. (2) Atrial fibrillation Current Visit: No Status: Chronic Per EP: -Known a.fib. -See antiarrythmic therapy as above. Qualifiers: Atrial fibrillation type: chronic Qualified Code(s): I48.2 - Chronic atrial fibrillation (3) MAY (obstructive sleep apnea) Current Visit: No Status: Chronic Per EP: -Known MAY. -Compliant with CPAP. -Continue CPAP. (4) Obesity Current Visit: No Status: Chronic Per EP: -Healthy lifestyle stressed with patient. Qualifiers: Obesity type: due to excess calories Obesity classification: adult class 3 (BMI >= 40) Serious obesity comorbidity presence: with serious comorbidity Body mass index: BMI 50.0-59.9 Qualified Code(s): E66.01 - Morbid (severe) obesity due to excess calories; Z68.43 - Body mass index (BMI) 50-59.9, adult Discussion w patient/family: The assessment and plan as outlined above was discussed with the patient who expressed understanding and agreement. All questions were answered. Thank you for involving us in the care of your patient. Please call with any questions. Discussed and reviewed with Dr.John Betancourt. Subjective Principal diagnosis: PAF Interval history: Patient was directly admitted for sotalol increase. Patient denies complaints today. Objective Vital Signs, Last 4 Hours Temp Pulse Resp BP Pulse Ox 06/12/18 06:55 97.8 F 94 16 142/85 94 General: Conversant, No Apparent Distress HEENT: Atraumatic, Normocephaly, Mucus Membranes Moist Neck: No JVD, Normal carotid pulses Cardiac: Normal S1 and S2, No Murmur, Other (Irregularly irregular) Lungs: Normal Breath Sounds, No Wheeze, Rales, Rhonchi Neuro: Alert and responsive, No focal deficits noted Abdomen: Soft, Non-Tender Skin: No rashes noted on visualized skin Musculoskeletal: No Chest Wall Tenderness Extremities: No Clubbing, No Cyanosis, No Edema, Normal Pulses Results 06/11/18 10:42 06/11/18 10:42 Lab Results Active Medications Aspirin (Aspirin Ec) 81 mg PO HS [facility] Stop: 12/11/18 21:01 Last Admin: 06/11/18 20:20 Dose: 81 mg Dextrose/Water (Dextrose 50% (Syg)) 25 ml IVP AD PRN PRN Reason: Hypoglycemia Stop: 12/11/18 11:13 Diltiazem HCl (Cardizem Cd) 180 mg PO DAILY [facility] Stop: 12/12/18 09:01 Last Admin: 06/12/18 08:11 Dose: 180 mg Glucagon (Glucagen) 1 mg IM ONCE PRN PRN Reason: Hypoglycemia Stop: 12/11/18 11:13 Glucose (Gluctose) 15 gm PO ONCE PRN PRN Reason: Hypoglycemia Stop: 12/11/18 11:13 Glucose (Gluctose) 30 gm PO ONCE PRN PRN Reason: Hypoglycemia Stop: 12/11/18 11:13 Dextrose (Dextrose 5%) 1,000 mls @ 100 mls/hr IVC .Q10H PRN PRN Reason: HYPOGLYCEMIA Stop: 12/11/18 11:13 Insulin Human [facility] ([facility]alog) [facility]; Protocol Stop: 12/11/18 11:31 Last Admin: 06/12/18 08:18 Dose: Not Given Insulin Human Lispro (Humalog) 0 units SQ [facility]; Protocol Stop: 12/11/18 21:01 Last Admin: 06/11/18 20:21 Dose: Not Given Lisinopril (Zestril) 40 mg PO [facility] Stop: 12/11/18 21:01 Last Admin: 06/11/18 20:20 Dose: 40 mg Metformin HCl (Glucophage) 500 mg PO BIDWM [facility]; Protocol Stop: 12/11/18 17:01 Last Admin: 06/12/18 08:10 Dose: 500 mg Naloxone HCl (Narcan) 0.4 mg IVP Q2MIN PRN PRN Reason: SEE COMMENTS Stop: 12/11/18 10:32 Pharmacy Profile Note (Patient Taking Own Medication) 1 each PO HS [facility] Stop: 12/11/18 21:01 Last Admin: 06/11/18 20:49 Dose: 1 each Rivaroxaban (Xarelto) 20 mg PO 1700 [facility] Stop: 12/12/18 17:01 Simvastatin (Zocor) 40 mg PO HS [facility]; Protocol Stop: 12/11/18 21:01 Last Admin: 06/11/18 20:20 Dose: 40 mg Sotalol HCl (Betapace) 160 mg PO Q12HR [facility] Stop: 12/11/18 18:01 Last Admin: 06/12/18 08:11 Dose: 160 mg Laboratory Tests 06/11/18 06/11/18 10:42 10:42 Hgb 15.7 Creatinine 0.97 - EKG Interpretation EKG results cardiology: personally reviewed (ECG today with a.fib, HR 89. QT 402/QTc 448ms.), other (Telemetry reviewed with average HR previous 12 hours noted to be 86, a.fib. PVCs, couplets noted.) - VTE Reasons for not Prescribing Prophylaxis: Not indicated-Anticoagulated or INR therapeutic Consult Discharge Plan - Plan Referrals: NONE,PCP [Primary Care Provider] -
--- NOTE | 2018-06-12 10:30 | Electrocardiograph Report ---
[address] [address] Test Date: 2018-06-11 Pat Name: Raul Echevarria Department: 111 Room: 2NE24 Gender: Well Reactivator Operator: : 1970 Requested By: Fabi Alberts Order Number: [id number] Reading MD: Pauly Waterman Measurements Intervals [place] Rate: 106 P: [place]: 0 QRS: 8 QRSD: 93 T: -15 QT: 347 QTc: 409 Interpretive Statements ATRIAL FIBRILLATION WITH RAPID VENTRICULAR RESPONSE POSSIBLE RIGHT VENTRICULAR CONDUCTION DELAY Electronically Signed On 06-12-2018 10:29:03 EST by Pauly Waterman
--- NOTE | 2018-06-12 14:53 | Electrocardiograph Report ---
[address] [address] Test Date: 2018-06-12 Pat Name: Raul Echevarria Department: 111 Room: 2N4 Gender: Financial Project Manager: : 1970 Requested By: Fabi Alberts Order Number: [id number] Reading MD: Hebrert Galeana Measurements Intervals [place] Rate: 89 P: [place]: 0 QRS: -3 QRSD: 96 T: -10 QT: 402 QTc: 448 Interpretive Statements ATRIAL FIBRILLATION ABNORMAL RHYTHM ECG Electronically Signed On 06-12-2018 14:52:02 EST by Herbert Galeana
[2018-06-12] MEDS ORDERED: *HR* Rivaroxaban 10 MG TABLET PO SCH (17:00)
[2018-06-12] MEDS: Aspirin Enteric Coated 81 MG Tablet PO SCH (20:11)
[2018-06-12] MEDS: Lisinopril 20 MG TABLET PO SCH (20:11)
[2018-06-13] MEDS: Insulin LISPRO 300 UNITS/3 ML VIAL SQ SCH ×2 (08:01→13:38)
[2018-06-13] MEDS: Diltiazem CD (24hr) 180 MG CAPSULE PO SCH (09:16)
[2018-06-13] MEDS: *HR* Metformin 500 MG TABLET PO SCH (09:16)
--- NOTE | 2018-06-13 09:55 | Event Note ---
Date of Encounter: 06/13/18 Time of Encounter: 09:00 - Cardiology Event Note Patient admitted for sotalol increase. Pateint is s/p 4 total doses of increased sotalol. ECG today with a.fib, HR 72. QT 400/QTc 425ms. QTcs have remained stable. Patient denies missed doses of xarelto. Plan for DCCV today under fluo roscopy. Risks versus benefits of DCCV explained to patient, who states understanding and agreeable to proceed. Further recommendations pending DCCV.
--- NOTE | 2018-06-13 10:22 | Electrocardiograph Report ---
[address] [address] Test Date: 2018-06-13 Pat Name: Raul Echvearria Department: 111 Room: 2NE24 Gender: M Pharmacy Services Director: : 1970 Requested By: Fabi Alberts Order Number: [id number] Reading MD: Pauly Waterman Measurements Intervals [place] Rate: 72 P: [place]: 0 QRS: 4 QRSD: 90 T: 1 QT: 400 QTc: 425 Interpretive Statements ATRIAL FIBRILLATION Electronically Signed On 06-13-2018 10:21:20 EST by Pauly Waterman
[2018-06-13] MEDS ORDERED: 0.9 % Sodium Chloride 1,000 ML ONE (10:42)
--- NOTE | 2018-06-13 10:42 | Pre-Sedation Evaluation ---
Pre-sedation evaluation - Pre-sedation checklist Date of procedure: 06/13/18 Procedure: Synchronized Electrical Cardioversion Recent Vitals: Last Vital Signs Temp 97.8 F 06/13/18 07:57 Pulse 79 06/13/18 07:57 Resp 16 06/13/18 07:57 BP 145/97 06/13/18 07:57 Pulse Ox 95 06/13/18 06:09 H&P (including ROS) documented in medical record: Yes Previous reaction to sedatives/anesthetics: No Dietary Status: NPO after Midnight Airway Assessment: Patient can open mouth completely, TMJ function normal, Micrognathia (under-bite, receding chin) absent Dentition: No loose teeth or bridges Possible difficult airway: Yes If Yes;: Morbid obesity ASA Classification *see protocol: CLASS II-Mild systemic disease, CLASS III- Severe systemic disease Plan of Care: Pt appropriate candidate for procedure/moderate/conscious sedation
[2018-06-13] MEDS ORDERED: *HR* Midazolam HCl 5 MG/5 ML VIAL IVP ONE (10:51)
[2018-06-13] MEDS ORDERED: *HR* FentaNYL (PF) 100 MCG/2 ML VIAL ONE ×3 (10:51→11:27)
[2018-06-13] MEDS ORDERED: *HR* Midazolam HCl 2 MG/2 ML VIAL ONE ×4 (11:02→11:27)
[2018-06-13 12:26] VITALS: BP 140/102
--- NOTE | 2018-06-13 13:42 | Discharge Summary ---
- NOTES TO OUTPATIENT PROVIDER Notes to Outpatient Provider: Admitted for sotalol increase, s/p unsuccessful DCCV. Orders not resulted at time of discharge: Pending orders 06/13/18 08:55 CL Cardioversion [CL] Routine 06/14/18 06:00 ECG 12 lead ECG [ECG] AM 0600 Date of Encounter: 06/13/18 Time of Encounter: 13:38 - Discharge Diagnosis (1) Encounter for monitoring anti-arrhythmic therapy Priority: Primary Status: Acute Comments: Admitted for sotalol increase. (2) Atrial fibrillation Priority: Secondary Status: Chronic Comments: Known a.fib Qualifiers: Atrial fibrillation type: chronic Qualified Code(s): I48.2 - Chronic atrial fibrillation (3) MAY (obstructive sleep apnea) Priority: Secondary Status: Chronic Comments: Known MAY (4) Obesity Priority: Secondary Status: Chronic Comments: Known obesity Qualifiers: Obesity type: due to excess calories Obesity classification: adult class 3 (BMI >= 40) Serious obesity comorbidity presence: with serious comorbidity Body mass index: BMI 50.0-59.9 Qualified Code(s): E66.01 - Morbid (severe) obesity due to excess calories; Z68.43 - Body mass index (BMI) 50-59.9, adult - Hospital Course Hospital course: Mr. Echevarria is a 47 year old male who was admitted to [facility] for sotalol increase. Patient is s/p 4 total doses of increased dose of sotalol 160mg Q12 hours. Patient is s/p unsuccessful DCCV today under fluoroscopy. Per , discharge on increased dose of sotalol and further recommendations will be discussed in outpatient setting. QT/QTcs have remained stable. ECGs reviewed with Dr.John Betancourt. Patient is on xarelto for anticoagulation, denies missed doses. Educated on importance of not missing doses of anticoagulation. Discussed and reviewed with Dr.John Betancourt, pateint is ok for discharge today. Educated on no driving for 24 hours. Discussed with , ok to return to work on Sunday. Patient is being prepped for discharge home in stable condition. All questions answered. Patient will follow with [facility], follow up set. - Time Spent with Patient Total time spent providing and/or coordinating discharge services: Less than 30 minutes - Discharge Medications Prescriptions: Sotalol [Betapace] 160 mg PO Q12HR #30 tablet Home Medications: Aspirin [Lo-Dose Aspirin EC] 81 mg PO DAILY 05/01/18 [History] Lisinopril [Zestril] 40 mg PO DAILY 05/01/18 [History] [place]-3/Dha/Epa/Fish Oil [Fish Oil 1,000 mg Softgel] 1 cap PO DAILY 05/01/18 [History] Rivaroxaban [Xarelto] 20 mg PO DAILY 05/01/18 [History] Simvastatin [Zocor] 40 mg PO HS 05/01/18 [History] metFORMIN [Glucophage] 500 mg PO BID 05/01/18 [History] Diltiazem CD (24hr) [Cardizem CD] 180 mg PO DAILY #30 cap.er.24h 05/04/18 [Rx] Sotalol [Betapace] 160 mg PO Q12HR #30 tablet 06/13/18 [Rx] Allergies/Adverse Reactions: Allergy/AdvReac Type Severity Reaction Status Date / Time No Known Allergies Allergy Verified 05/01/18 18:26 Date of admission: 06/11/18 10:29 Primary care physician: PCP NONE Discharging clinician: Fabi Alberts Anticipated date of discharge: 06/13/18 Physical Examination Vital Signs, Last 4 Hours Temp Pulse Resp BP Pulse Ox 06/13/18 12:25 97.6 F 103 16 140/102 95 General: Conversant, No Apparent Distress HEENT: Atraumatic, Normocephaly, Mucus Membranes Moist Neck: No JVD, Normal carotid pulses Cardiac: Normal S1 and S2, No Murmur, Other (Irregularly irregular ) Lungs: Normal Breath Sounds, No Wheeze, Rales, Rhonchi Neuro: Alert and responsive, No focal deficits noted Abdomen: Soft, Non-Tender Skin: No rashes noted on visualized skin Musculoskeletal: No Chest Wall Tenderness Extremities: No Clubbing, No Cyanosis, No Edema, Normal Pulses - Patient Status Disposition: Home, Self-Care Condition: Good Functional capacity at discharge: independent ambulation Overall status at discharge: patient is progressing back to baseline - Discharge Instructions Follow Up With: NONE,PCP [Primary Care Provider] - - Diet and Activity Activity: increase activity as tolerated Diet: diabetic diet, low fat, low cholesterol, low salt diet - VTE Reasons for not Prescribing Prophylaxis: Not indicated-Anticoagulated or INR therapeutic
== END 2018-06-13 15:27 | disposition home or self-care (01) | DRG 309 ==
LOC: 2NENU 10:29
PROVIDERS: ADMIT Internal Medicine Clinical Cardiac Electrophysiology; ATTEND Internal Medicine Clinical Cardiac Electrophysiology